=== PATIENT | male | born 1955 | race African-American/Black ===

== ENCOUNTER 2017-10-05 10:20 | Day surgery (SDC) | END 2017-10-05 16:30 | disposition home or self-care (01) ==

== ENCOUNTER 2017-11-30 15:45 | Inpatient (IN) | END 2017-12-05 15:10 | disposition home or self-care (01) | DRG 202 ==

== ENCOUNTER 2017-12-19 03:23 | Inpatient (IN) | END 2018-01-02 11:30 | disposition home or self-care (01) | DRG 981 ==